=== PATIENT | male | born 1965 | race Caucasian/White ===

== ENCOUNTER 2022-03-22 06:00 | Outpatient (RCR) | payer BC, SELFPAY | END 2022-03-22 23:55 | disposition home or self-care (01) | LOC: MPT 06:00 | PROVIDERS: PCP Nurse Practitioner Family; Visit Provider Nurse Practitioner Family | DX: M25.462 Effusion, left knee (principal) | CPT/HCPCS: 97110; 97161 ==

== ENCOUNTER 2022-04-09 08:17 | Outpatient (CLI) | payer BC, SELFPAY ==
--- NOTE | 2022-04-09 08:45 | MR_ITS ---
WS: [id number] MRI LEFT KNEE HISTORY: Generalized LEFT knee pain with swelling for 3 months. COMPARISON: None available. Anterior cruciate ligament: Intact. Posterior cruciate ligament: Intact. Medial collateral ligament: Intact. Posterior lateral corner structures: Intact. Medial menisci: Very small amount of increased T2 signal in the posterior horn which abuts the barrel endshake adjuster ior surface but not the articular surfaces. Lateral meniscus: Intact. Normal signal, size and shape. Extensor mechanism: Distal quadriceps tendon and patellar tendons are intact. Fluid and soft tissue: Large joint effusion. There is also soft tissue edema surrounding the knee. No Diop's cyst. Osseous and articular structures: Patellofemoral compartment: Very slight lateral subluxation of the patella. Loss of cartilage involvi ng the lateral facet. No marrow edema. Medial compartment: Minimal marrow narrowing of the medial compartment. Fissuring of cartilage defect along the femoral condyle towards the intercondylar notch. No marrow edema. Lateral compartment: Minimal narrowing of the lateral compartment. Cartilage is preserved. The most p art. Very minimal surface irregularity along the tibial plateau. There is a large lobulated intra-articular body which follows bone signal on all sequences. This lobu lated mass measures 2.1 x 1.4 x 1.4 cm. Mass is surrounded by fluid and is centered posterior to the distal PCL. MR/MR knee LT wo con* [id number] IMPRESSION: 1. Large intra-articular loose body follows bone signal on all sequences and i s surrounded by edema. This fragment measures 2.1 x 1.4 x 1.4 cm and is posteri or to the distal PCL. No osseous or cartilage fragment of this size. 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 2. Complete loss of cartilage over the lateral patellar facet. 3. Large joint effusion. 4. Very minimal chondromalacia in the medial and lateral compartments.
[2022-04-09] MEDS: gadobenate dimeglumine 20 mL vial IV (08:52)
== END 2022-04-09 08:18 | disposition home or self-care (01) ==
LOC: RAD 08:20
PROVIDERS: PCP Nurse Practitioner Family; Visit Provider Nurse Practitioner Family
DX: M25.462 Effusion, left knee (principal); M94.262 Chondromalacia, left knee
CPT/HCPCS: 73721; A9577

== ENCOUNTER → 2022-04-29 06:48 | Outpatient (BNVA) | payer BC, SELFPAY | PROVIDERS: PCP Nurse Practitioner Family; Referring Provider Nurse Practitioner Family; Visit Provider Student in an Organized Health Care Education/Training Program | DX: M25.562 Pain in left knee (principal) | CPT/HCPCS: 73560; 73565 ==

== ENCOUNTER 2022-05-19 09:56 | Day surgery (SDC) | payer BC, SELFPAY ==
[2022-05-18 12:37] VITALS: BMI 26.9
[2022-05-19] VITALS (12 sets, daily range): BP systolic 104–154; BP diastolic 64–92; PULSE 68–74; RESP 12–18; TEMP 36.1–36.7; O2SAT 93–100
[2022-05-19] MEDS: sodium chloride 0.9% 1,000 ML 30 ML IV (10:30)
--- NOTE | 2022-05-19 10:34 | ANES.PREANE2 ---
Pre-Anesthetic Assessment Height/Weight: Height 1.88 m Weight 95.254 kg Temp Pulse Resp BP Pulse Ox O2 Del Method 98.1 F 68 16 154/92 97 05/19/22 10:16 05/19/22 10:16 05/19/22 10:16 05/19/22 10:16 05/19/22 10:16 05/19/22 10:16 Preop Diagnosis: Left knee loose body, medial meniscus tear, chondromalacia Operation Date: 05/19/22 13:10 Proposed Procedures p Left knee diagnostic and surgical arthroscopy with loose body removal [id number] ,M25.562,M23.42,M22.40,S83.249A(Left) - Sandor Merrill DO Familial anesthetic complications: None Was Beta Yamila taken within 24 hours: N/A Was Clonidine taken within 24 hours: N/A Last intake: Intake Last Liquid Date 05/19/22 Last Liquid Time 06:00 Last Solid Date 05/18/22 Last Solid Time 21:00 Social Alcohol (couple of beers a night) and No tobacco Exam alert, oriented x 3, clear to auscultation bilaterally and regular rate & rhythm Airway Mallampati: Class III Dentition: other (missing) Anesthetic Plan ASA status: 2 Anesthesia: General Other: patient declined nerve block Risk of > 500 ml blood loss (7ml/kg in children): No Medications/Allergies Home Medications Medication Instructions Recorded Confirmed Last Taken Type No Known Home Medications 03/02/22 05/19/22 Unknown History Allergies Allergy/AdvReac Type Severity Reaction Status Date / Time No Known Allergies Allergy Verified 05/19/22 10:25 [facility] Anesthesia Medical History (Updated 05/03/22 @ 21:25 by Sandor Merrill DO) Chondromalacia of patellofemoral joint Loose body in knee, left knee Medial meniscus tear Family History Mother No family history of disorders Father No family history of disorders Social History Smoking and tobacco status: never smoked Data Anesthesia Cardiac Studies: No Data to Display
[2022-05-19] MEDS: acetaminophen 1,000 MG/100 ML PIGGYBACK 400 MG IV (10:35)
[2022-05-19] MEDS: ketorolac 30 mg/mL INJ IVP (10:40)
--- NOTE | 2022-05-19 10:42 | W.PM.OPSUD ---
Surgery/Procedure H&P Update DATE OF PROCEDURE: May 19, 2022 DATE H&P PERFORMED: 04/29/22 CHANGES TO PREVIOUS DOCUMENTATION: None PREOP DIAGNOSIS: Left knee loose body, medial meniscus tear, chondromalacia PRIMARY INDICATION FOR PROCEDURE: Left knee loose body, possible medial meniscus tear, patella chondromalacia PLANNED PROCEDURE: Operation Date: 05/19/22 13:10 Proposed Procedures p Left knee diagnostic and surgical arthroscopy with loose body removal [id number] ,M25.562,M23.42,M22.40,S83.249A(Left) - Sandor Merrill DO
[2022-05-19] MEDS: ceFAZolin 2,000 MG in sodium chloride 0.9% (plus) 50 ML 100 MG IV (10:50)
--- NOTE | 2022-05-19 12:11 | PC.NURSE ---
patient awake. oral airway removed
--- NOTE | 2022-05-19 12:54 | PM.OP ---
Operative Report Date of procedure: May 19, 2022 Pre-op diagnosis: Preop Diagnosis Left knee loose body, medial meniscus tear, chondromalacia Post-op diagnosis: Left knee patellofemoral chondromalacia Left knee extensive synovitis Procedure done: Left knee diagnostic and surgical arthroscopy with patellofemoral chondroplasty Left knee diagnostic and surgical arthroscopy with extensive synovectomy of medial, lateral, patellofemoral compartments. Surgeon: Sandor Merrill DO Estimated blood loss: 5mL 29min IV fluids: See anesthesia record Complications: None Findings: See operative report narrative Condition: stable Disposition: same day Brief History: Patient's been worked up in the outpatient setting for left knee pain. Patient had an MRI which showed he had a severely large loose body that appeared to be ossified posterior to the PCL along the posterior capsule. He had slight tenderness to this however he had medial joint line tenderness as well as pain in the patellofemoral region. He did have some findings of patellofemoral chondromalacia. He is failed conservative treatment through shared decision making we talked about nonoperative and operative invention about risk benefits complication alternatives to each. Understanding his risks he elects to proceed with surgical intervention of left knee diagnostic and surgical arthroscopy with loose body removal as well as possible partial medial meniscectomy and chondroplasty. We did discuss in detail about his loose body given its severely large size as well as appearing to be ossified and had the direct posterior to the PCL this being near the neurovascular bundle and a challenging location to retrieve any loose body explained that we may leave this alone if this is scarred and adhered in place with care to try and not damage more cartilage and trying to obtain visualization to retrieve this fragment. He understands and agrees to proceed with surgical intervention. All questions answered. Procedure: Patient seen evaluated in the preoperative holding area. Consent was reviewed and signed with patient. Correct extremity was then marked. He was seen evaluated by anesthesia department. Once cleared for surgery was taken back to the operative suite. He was transported on the OR table all bony prominences well-padded patient was properly secured to the bed. Nonsterile tourniquet applied to the left lower extremity. Final timeout performed. Patient received appropriate preoperative antibiotics. Esmarch tourniquet was used exsanguinate the left lower extremity and tourniquet was insufflated to 300 mmHg. Patient received local anesthesia around the portal sites and intra-articular prior to diagnostic and surgical arthroscopy of the left knee. Utilize a standard 2 vertical portal incisions. Started with inferior lateral portal site which was then made and the arthroscope was then subsequently introduced. Suprapatellar pouch was then visualized and was free of loose bodies. I then directly visualized the patellofemoral compartment which had extensive synovitis as well as grade III and IV chondromalacia of the trochlear groove as well as the patella. I then visualized the medial gutter which was free of loose bodies. Next I then moved the arthroscope into the medial compartment. The medial compartment of the knee was visualized and found to have predominantly grade I chondromalacia with only a small area of grade II chondromalacia on the posterior medial aspect of the medial femoral condyle. I established my medial working portal utilizing spinal needle outside in technique. I then introduced arthroscopic shaver and perform synovectomy of the medial compartment. Arthroscopic probe introduced the medial compartment and the root was probed and found to be stable with no root tear and no medial meniscus tear was appreciated. Next the intercondylar notch was visualized and the ACL and PCL were intact. I then visualized the lateral compartment which had grade I and II chondromalacia throughout. No chondroplasty was performed. The lateral meniscus was then inspected with arthroscopic probe and found to be intact with no tear. I then visualized the lateral gutter which was free of loose bodies and then once again we visualized the patellofemoral compartment and performed an extensive abrasion chondroplasty of the patellofemoral compartment of the trochlear groove and undersurface of the patella as patient grade 3 of 4 chondromalacia. At this point time my attention was then focused towards the loose body that was identified on MRI. I subsequently mobilized the arthroscope into the retrocruciate space and look behind the medial femoral condyle which showed no evidence of loose bodies. I then turned the arthroscope and visualize posterior to the PCL there was no visible or free-floating loose body. There was dense amount of scar tissue posterior to the PCL I then introduced a thermal wand to this region and gently coagulated to see if this would open a pseudocapsule however there was no evidence of loose body within the pseudocapsule and it appeared to be extensive posterior synovium and no violation the posterior capsule was performed. Next I visualized the posterior lateral retrograde she had space and no evidence of this loose body was visualized as result I made the decision to leave this alone as this was clearly evident that this was adhered severely posterior to the PCL and is likely adhered and scarred into the posterior capsule. This point time feel the following tenets of doing no harm would further cause the patient injury to cartilage or ligaments and trying to retrieve or further evaluate this posterior structure this point time decision was made to leave this alone. No retrieval loose body was performed. This completed my diagnostic and surgical arthroscopy of the knee. Tourniquet was deflated hemostasis satisfactory. Fluid was then suctioned from the knee. All instruments were removed from the knee. Incisions were thoroughly irrigated there were then closed with interrupted portal stitches with nylon. Xeroform and a bulky soft dressing applied with an Maxwell wrap over the incision sites. Patient was then awakened from anesthesia and taken to PACU in stable condition. Disposition: Patient taken to PACU in stable condition. Patient recovering well. Dressing clean dry and intact. Patient received appropriate postoperative instructions as well as pain medication DVT prophylaxis postoperatively. Patient tolerated procedure without any issues. We will follow-up with me in the office in 2 weeks. He was updated on findings and understands that this large loose body is adhered and not free-floating and as a result this was left alone. He understands and agrees to proceed with current plan. We will see him postoperatively in 2 weeks. All questions answered.
--- NOTE | 2022-05-19 12:54 | PM.OP2 ---
Brief Operative Note Date of procedure: 05/23/22 Pre-op diagnosis: Left knee loose body, possible medial meniscus tear, patella chondromalacia Post-op diagnosis: other (Left knee extensive synovitis and patellofemoral chondromalacia) Procedure Done: Left knee diagnostic and surgical arthroscopy with patellofemoral chondroplasty Left knee diagnostic and surgical arthroscopy with extensive synovectomy of medial, lateral, patellofemoral compartments. Surgeon: Sandor Merrill Estimated blood loss (mL): 5 Complications: none Post-op Plan: Patient taken to PACU in stable condition. Patient recovering well. Dressing clean dry and intact will receive appropriate discharge instruction as well as pain medication as well as DVT prophylaxis postoperatively. To follow-up with me in the office in 2 weeks. Weight-bear as tolerated left lower extremity. All questions answered at this time. 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
--- NOTE | 2022-05-19 12:54 | PM.PACU ---
PACU note Narrative: Patient taken to PACU in stable condition and recovering well. Patient pain controlled. Sensation tact light touch distally. Distal pulses palpable. Dressing clean dry and intact. Patient is able to wiggle toes plantarflex and dorsiflex ankle. Exam: awake Disposition: discharged
--- NOTE | 2022-05-19 12:55 | ANE.PACU2 ---
Inpatient post-anesthesia follow up: Airway intact: Yes Vital signs: Temperature 97.4 F Pulse Rate 74 Respiratory Rate 18 Blood Pressure 127/67 Pulse Oximetry 98 Oxygen Delivery Me thod Room Air Oxygen Flow Rate 8 Fraction of Inspir ed Oxygen Hydration adequate: Yes Nausea and vomiting: No Pain level: 1 Mental status: Baseline
== END 2022-05-19 13:09 | disposition home or self-care (01) ==
PROVIDERS: PCP Nurse Practitioner Family; Visit Provider Student in an Organized Health Care Education/Training Program
PROC: (CPT 29870; principal; 2022-05-19 13:00)
PROC: (CPT 29876; 2022-05-19 13:00)
DX: M22.42 Chondromalacia patellae, left knee (principal); M65.9 Synovitis and tenosynovitis, unspecified
CPT/HCPCS: 29876; J0131; J0690; J1100; J1885; J2370; J2405; J2704; J3010; J7030